=== PATIENT | male | born 1975 | race Caucasian/White ===

== ENCOUNTER 2020-10-07 09:14 | Emergency (ER) | payer OTHER, BC, SELFPAY ==
[2020-10-07 09:22] VITALS: BP 115/79; PULSE 68; RESP 18; TEMP 36.6; O2SAT 99
--- NOTE | 2020-10-07 10:53 | ED.GENADULT ---
HPI - General Adult General Chief complaint: Unspecified <Juan Rojo PA-C - Last Filed: 10/07/20 10:58> Stated complaint: wants to be checked out after work injury <Juan Rojo PA-C - Last Filed: 10/07/20 10:58> Time Seen by Provider: 10/07/20 09:51 <Juan Rojo PA-C - Last Filed: 10/07/20 10:58> Source: patient <Juan Rojo PA-C - Last Filed: 10/07/20 10:58> Mode of arrival: ambulatory <uJan Rojo PA-C - Last Filed: 10/07/20 10:58> Limitations: no limitations <Juan Rojo PA-C - Last Filed: 10/07/20 10:58> History of Present Illness HPI narrative: Patient is a 45-year-old male who presents after having a head injury yesterday had a box fall from a height striking the posterior head patient was evaluated at the facility health office sent home after finishing his shift notes that today he presents wanting evaluation to make sure everything is okay patient on arrival denies any pain patient has not taken anything for his symptoms and notes that he has felt fine since the injury patient otherwise notes that he has been healthy has no other complaints has not on any blood thinners did not sustain loss of consciousness or syncope <Juan Rojo PA-C - Last Filed: 10/07/20 10:58> Related Data Home medications: Home Medications Medication Instructions Recorded Confirmed No Home Medications 10/07/20 10/07/20 <Juan Rojo PA-C - Last Filed: 10/07/20 10:58> Allergies/adverse reactions: Allergies Allergy/AdvReac Type Severity Reaction Status Date / Time Penicillins Allergy Unknown Verified 10/07/20 09:35 <Juan Rojo PA-C - Last Filed: 10/07/20 10:58> Review of Systems Review of Systems: All systems reviewed & are unremarkable except as noted in HPI and below <Juan Rojo PA-C - Last Filed: 10/07/20 10:58> [facility] Social History Social History: Social History (Updated 10/07/20 @ 10:55 by Juan Rojo PA-C) Smoking status: Never smoker Gender identity (if verbalized by the patient): Male <ALEX Lang Last Filed: 10/07/20 10:58> Exam Narrative: Exam Narrative: GENERAL: Well-appearing, well-nourished, and in no acute distress. HEAD: Normocephalic, atraumatic. Nontender EYES: PERRLA and EOMI. ENT: Nares clear, no rhinorrhea or epistaxis. Mucous membranes moist. NECK: Supple. No adenopathy or masses. CHEST: Clear to auscultation. No respiratory distress. No wheezes rales or rhonchi HEART: Regular rate and rhythm. No murmur heard. Normal peripheral pulses. ABDOMEN: Soft, nontender, nondistended EXTREMITIES: Normal range of motion. No edema. No cervical thoracic or lumbar tenderness SKIN: Warm, dry, no rash. NEURO: No focal deficits. Alert and oriented x3. Cranial nerves II through XII grossly intact PSYCH: Normal mood and affect. <ALEX Lang Last Filed: 10/07/20 10:58> Course Course Emergency Course: Patient in the room no distress aware of case findings treatment plan diagnosis <ALEX Lang Last Filed: 10/07/20 10:58> Vital Signs Vital signs: Vital Signs Temperature 97.9 F 10/07/20 09:22 Pulse Rate 68 10/07/20 09:22 Respiratory Rate 18 10/07/20 09:22 Blood Pressure 115/79 10/07/20 09:22 Pulse Oximetry 99 10/07/20 09:22 Temperature 97.9 F 10/07/20 09:22 Pulse Rate 68 10/07/20 09:22 Respiratory Rate 16 10/07/20 11:03 Blood Pressure 115/79 10/07/20 09:22 Pulse Oximetry 99 10/07/20 09:22 <ALEX Lang Last Filed: 10/07/20 10:58> Vital Signs Temperature 97.9 F 10/07/20 09:22 Pulse Rate 68 10/07/20 09:22 Respiratory Rate 18 10/07/20 09:22 Blood Pressure 115/79 10/07/20 09:22 Pulse Oximetry 99 10/07/20 09:22 Temperature 97.9 F 10/07/20 09:22 Pulse Rate 68 10/07/20 09:22 Respiratory Rate 16 10/07/20 11:03 Blood Pressure 115/79 10/07/20 0
[2020-10-07 11:03] VITALS: RESP 16
== END 2020-10-07 11:03 | disposition home or self-care (01) ==
PROVIDERS: Emergency Provider General Practice; PCP Student in an Organized Health Care Education/Training Program
DX: S09.90XA Unspecified injury of head, initial encounter (principal); W20.8XXA Other cause of strike by thrown, projected or falling object, initial encounter
CPT/HCPCS: 99283